=== PATIENT | male | born 1995 | race Caucasian/White ===

== ENCOUNTER 2017-11-12 13:19 | Emergency (ER) | payer MEDICAID, OTHER ==
--- NOTE | 2017-11-12 13:47 | ERPHSYRPT ---
- History of Present Illness Time Seen by Provider: 11/12/17 13:43 Source: patient Exam Limitations: no limitations Patient Subjective Stated Complaint: sore throat for one week Triage Nursing Assessment: ambulated to room per self. skin w/d, color normal, resp easy. no signs of acute distress. Physician History: 22-year-old white male arrives with complaint of sore throat for a week occasional cough some nausea, fevers. Past medical history includes attention deficit hyperactivity disorder. Social history patient denies tobacco alcohol or illicit drug use. Timing/Duration: abrupt onset Severity: moderate ENT Location: throat Prearrival Treatment: no prearrival treatment Associated Symptoms: cough, fever, sore throat, No ear pain (R), No ear pain (L) , No chills, No change in hearing, No dizziness, No drooling, No ear drainage, No facial pain/swelling, No headache, No hearing loss, No jaw pain, No malaise, No motion sickness, No nasal congestion/drainage, No epistaxis, No nasal foreign body, No neck pain, No poor fluid intake, No poor solids intake, No ringing of ears, No swollen glands, No sinus infection, No tooth pain, No difficulty swallowing, No voice change Allergies/Adverse Reactions: No Known Drug Allergies Allergy (Unverified 02/19/14 17:26) Hx Tetanus, Diphtheria Vaccination/Date Given: No Hx Influenza Vaccination/Date Given: No Hx Pneumococcal Vaccination/Date Given: No - Review of Systems Constitutional: No Fever, No Chills Eyes: No Symptoms Ears, Nose, & Throat: Throat Pain, No Ear Pain, No Ear Discharge, No Hearing Changes, No Tinnitus, No Nose Pain, No Nose Congestion, No Nose Discharge, No Sinus Drainage, No Epistaxis, No Mouth Pain, No Mouth Swelling, No Loose Teeth, No Throat Swelling, No Hoarse, No Painful Swallowing, No Snoring, No Stridor ( With Phenergan oriented he get it) Respiratory: No Cough, No Dyspnea Cardiac: No Chest Pain, No Edema, No Syncope Abdominal/Gastrointestinal: No Abdominal Pain, No Nausea, No Vomiting, No Diarrhea Genitourinary Symptoms: No Dysuria Musculoskeletal: No Back Pain, No Neck Pain Skin: No Rash Neurological: No Dizziness, No Focal Weakness, No Sensory Changes Psychological: No Symptoms Endocrine: No Symptoms All Other Systems: Reviewed and Negative - Past Medical History Pertinent Past Medical History: No Neurological History: No Pertinent History Cardiac History: No Pertinent History Respiratory History: No Pertinent History Endocrine Medical History: No Pertinent History Musculoskeletal History: No Pertinent History GI Medical History: No Pertinent History History: No Pertinent History Psycho-Social History: Attention Deficit Disorder Male Reproductive Disorders: No Pertinent History Other Medical History: adhd - Past Surgical History Past Surgical History: No Other Surgical History: abcess removal - Social History Smoking Status: Never smoker Exposure to second hand smoke: No Drug Use: none Patient Lives Alone: No - Nursing Vital Signs Nursing Vital Signs: Initial Vital Signs Temperature 97.9 F 11/12/17 13:25 Pulse Rate 106 H 11/12/17 13:25 Respiratory Rate 16 11/12/17 13:25 Blood Pressure 142/77 11/12/17 13:25 O2 Sat by Pulse Oximetry 97 11/12/17 13:25 Pain Scale Pain Intensity 2 - Physical Exam Eye Exam: bilateral eye: normal inspection, PERRL, EOMI, abnormal EOM Ear Exam: bilateral ear: auricle normal, canal normal, TM normal Nasal Exam: normal inspection, No active bleeding, No discharge, No dried blood , No foreign body, No sinus tenderness Throat Exam: moist mucus membranes, No pharynx normal (throat erythematous), No dental tenderness, No excessive drooling, No foreign body, No mandibular swelling, No maxillary swelling, No pharynx swelling, No pharynx tenderness, No tongue swollen, No tonsillar exudate, No tonsillar swelling Neck Exam: supple Cardiovascular/Respiratory Exam: normal breath sounds, regular rate/rhythm Abdominal Exam: non-tender, soft Neurologic Exam: alert, oriented x 3, sensation nml, No motor deficits Skin Exam: normal color, warm, dry SpO2 Interpretation: normal (97%) SpO2: 97 Oxygen Delivery: Room Air - Course Nursing assessment & vital signs reviewed: Yes Ordered Tests: Active Orders 24 hr Category Date Time Status STREP SCREEN-BETA A Stat Lab 11/12/17 13:43 Completed Lab/Rad Data: Laboratory Results 11/12/17 Range/Units 13:43 Streptococcus Screen POSITIVE (Negative) - Progress Progress: improved Progress Note: 11/12/17 14:09 22-year-old white male arrives with a sore throat for a week. Patient has had a cough as well fever. Strep is positive. Will place patient on amoxicillin. - Departure Time of Disposition: 14:10 Departure Disposition: Home Clinical Impression: Strep pharyngitis Condition: Fair Critical Care Time: No Instructions: Strep Throat Additional Instructions: Return home. Plenty of fluids. Tylenol every 4 hours as needed for pain or temperature greater than 100.5. Motrin every 6 hours as needed for pain or temperature greater than 100.5. Amoxicillin as prescribed. Follow-up with your family doctor if symptoms are worse, no better in 48-72 hours or persist longer than one week. Return for acute distress or for severe symptoms. Prescriptions: Amoxicillin 500 mg PO TID #30 capsule
[2017-11-12 14:24] VITALS: BP 133/75; PULSE 85; O2SAT 95
== END 2017-11-12 14:25 | disposition home or self-care (01) ==
LOC: ED 13:19
DX: J02.0 Streptococcal pharyngitis (principal)
CPT/HCPCS: 87430; 99283